=== PATIENT | male | born 1945 | race Caucasian/White ===

== ENCOUNTER 2018-07-17 09:06 | Emergency (ER) | payer BC ==
--- NOTE | 2018-07-17 10:10 | UC ---
Shortness of Breath HPI - HPI Summary HPI Summary: 72-year-old male comes in with a chief complaint feeling bloated short of breath. Going on for months it's worse the last couple of days it was worse overnight. Does have a history of atrial fibrillation. No complaint of any chest pain. He is having pedal edema bilaterally. Activity makes the SOB worse. Resting helps. - History of Current Complaint Chief Complaint: UCGeneralIllness Stated Complaint: STOMACH DISCOMFORT Time Seen by Provider: 07/17/18 09:59 - Allergy/Home Medications Allergies/Adverse Reactions: Allergies Allergy/AdvReac Type Severity Reaction Status Date / Time No Known Allergies Allergy Verified 07/17/18 09:41 Home Medications: Home Medications Areds 1 tab PO BID 07/17/18 [History] Dapagliflozin/Metformin HCl [Xigduo Xr 5-500 mg] 1 tab PO SEE INSTRUCTIONS 07/17 [History Confirmed 07/17/18] Fenofibrate(NF) [Tricor(NF)] 145 mg PO DAILY 07/17/18 [History Confirmed ] Insulin Glargine,Hum.rec.anlog [Lantus Solostar 5x3 ML PENS] 76 units SUBCUT DAILY 07/17/18 [History Confirmed 07/17/18] Levothyroxine TAB* [Synthroid TAB*] 88 mcg PO DAILY 07/17/18 [History Confirmed 07/17/18] Lisinopril TAB* [Prinivil TAB*] 2.5 mg PO DAILY 07/17/18 [History Confirmed 08/28] Multivit-Min/FA/Lycopen/Lutein [Centrum Silver Men Tablet] 1 each PO DAILY 07/17 [History Confirmed 07/17/18] Rosuvastatin Calcium 40 mg PO DAILY 07/17/18 [History Confirmed 07/17/18] Saxagliptin HCl [Onglyza] 5 mg PO DAILY 07/17/18 [History Confirmed 07/17/18] Torsemide TAB* [Demadex*] 20 mg PO DAILY 07/17/18 [History Confirmed 07/17/18] Warfarin TAB(*) [Coumadin TAB(*)] 2.5 mg PO DAILY 07/17/18 [History Confirmed ] PMH/Surg Hx/FS Hx/Imm Hx Previously Healthy: Yes Endocrine History: Diabetes, Hypothyroidism Cardiovascular History: Hypertension, Atrial Fibrillation - Surgical History Surgical History: None - Family History Known Family History: Positive: Non-Contributory - Social History Alcohol Use: None Substance Use Type: None Smoking Status (MU): Current Some Day Smoker Type: Smokeless Tobacco Amount Used/How Often: last used about 2 months ago Review of Systems All Other Systems Reviewed And Are Negative: Yes Constitutional: Positive: Other - see hpi Skin: Positive: Negative Eyes: Positive: Negative ENT: Positive: Negative Respiratory: Positive: Shortness Of Breath Cardiovascular: Positive: Negative Gastrointestinal: Positive: Other - see hpi Genitourinary: Positive: Negative Motor: Positive: Negative Neurovascular: Positive: Negative Musculoskeletal: Positive: Edema Neurological: Positive: Negative Psychological: Positive: Negative Is Patient Immunocompromised?: No Physical Exam Triage Information Reviewed: Yes Appearance: Well-Appearing, No Pain Distress, Well-Nourished Vital Signs: Initial Vital Signs Temp 98.2 F 07/17/18 09:47 Pulse 103 07/17/18 09:47 Resp 18 07/17/18 09:47 BP 90/68 07/17/18 09:47 Pulse Ox 97 07/17/18 09:47 Vital Signs Reviewed: Yes Eye Exam: Normal Eyes: Positive: Conjunctiva Clear Neck: Positive: Supple Respiratory: Positive: No respiratory distress, Crackles - ar bases Cardiovascular: Positive: Tachycardia - irreg irreg Abdomen Description: Positive: Nontender, Soft Bowel Sounds: Positive: Present Musculoskeletal: Positive: Edema @ - b/l Neurological: Positive: Alert Psychological Exam: Normal Psychological: Positive: Normal Response To Family, Age Appropriate Behavior Skin Exam: Normal Diagnostics - EKG Cardiac Rate: Tachycardia - AT 0955 Cardiac Rhythm: AFib: Normal - RAPID 144 BPM Summary of EKG Findings: LBBB, NO OLD EKG FOR COMPARISON Shortness of Breath Dx - Course Course Of Treatment: The patient is in rapid atrial fibrillation the patient is in rapid atrial fibrillation. The crackles on the bases on exam. He has pedal edema. No complaint of any chest pain. I do not have any old EKGs to compare to there is a left bundle-branch block on this EKG. His blood pressure was slightly low oxygen saturation normal respiratory rate 18. I recommended further evaluation and care in the emergency department. Patient declined ambulance transport he will will go by POV. I spoke with the [place] emergency department physician Dr. Alexander about the patient. - Differential Dx/Diagnosis Provider Diagnosis: Atrial fibrillation, rapid, CHF (congestive heart failure), SOB (shortness of breath) Discharge - Sign-Out/Discharge Documenting (check all that apply): Patient Departure All imaging exams completed and their final reports reviewed: No Studies - Discharge Plan Condition: Stable Disposition: HOME-RECOMMEND TO ED Referrals: Alyce Nagy [facility] [Primary Care Provider] - Additional Instructions: GO DIRECTLY TO THE EMERGENCY DEPARTMENT FOR FURTHER EVALUATION. - Billing Disposition and Condition Condition: STABLE Disposition: Home-Recommend to ED
== END 2018-07-17 10:16 | disposition home health service (06) ==
LOC: UCCORT 09:06
DX: I48.91 Unspecified atrial fibrillation (principal); I50.9 Heart failure, unspecified; R06.02 Shortness of breath; Z79.01 Long term (current) use of anticoagulants; E11.9 Type 2 diabetes mellitus without complications; Z79.4 Long term (current) use of insulin; I10 Essential (primary) hypertension; E03.9 Hypothyroidism, unspecified; F17.210 Nicotine dependence, cigarettes, uncomplicated
CPT/HCPCS: 93005; 99202; G0463